=== PATIENT | female | born 1995 | race Caucasian/White ===

== ENCOUNTER 2017-10-18 19:34 | Emergency (ER) | payer SELFPAY ==
[2017-10-18] MEDS ORDERED: Bacitracin Oint 1 GM U/D Packet TOP ONE (19:51)
[2017-10-18] MEDS ORDERED: Diphtheria,Pertussis(Acell),Tetanus Vaccine 0.5 ML Syringe IM ONE (19:51)
--- NOTE | 2017-10-18 19:52 | EDM.PDOC ---
ED HPI GENERAL MEDICAL PROBLEM - General Chief Complaint: Lower Extremity Injury/Pain Stated Complaint: RIGHT KNEE PAIN Time Seen by Provider: 10/18/17 19:48 - History of Present Illness INITIAL COMMENTS - FREE TEXT/NARRATIVE: HISTORY AND PHYSICAL: History of present illness: Patient is a 22-year-old female presents status post fall and she was tripped by her dog sustaining an injury to her left hand and right knee her right knee sustained an abrasion and contusion she feels she jammed her first digit of her left hand with a fall there is no other trauma concern she denies any head or neck pain or trauma other problems Review of systems: As per history of present illness and below otherwise all systems reviewed and negative. Past medical history: As per history of present illness and as reviewed below otherwise noncontributory. Surgical history: As per history of present illness and as reviewed below otherwise noncontributory. Social history: No reported history of drug or alcohol abuse. Family history: As per history of present illness and as reviewed below otherwise noncontributory. Physical exam: HEENT: Atraumatic, normocephalic, pupils reactive, negative for conjunctival pallor or scleral icterus, mucous membranes moist, throat clear, neck supple, nontender, trachea midline. Lungs: Clear to auscultation, breath sounds equal bilaterally, chest nontender. Heart: S1S2, regular, negative for clicks, rubs, or JVD. Abdomen: Soft, nondistended, nontender. Negative for masses or hepatosplenomegaly. Negative for costovertebral tenderness. Pelvis: Stable nontender. Genitourinary: Deferred. Rectal: Deferred. Extremities: Patient's left thumb has no gross deformity; tenderness at the base was no crepitation CMS neurovascular is unremarkable right knee has a joint is grossly stable minor abrasion noted over the patella there is no crepitation or point tenderness no effusion. Neuro: Awake, alert, oriented. Cranial nerves II through XII unremarkable. Cerebellum unremarkable. Motor and sensory unremarkable throughout. Exam nonfocal. Diagnostics: X-ray right knee/left hand Therapeutics: Abrasion was cleansed and dressed with bacitracin Impression: 1 right knee injury #2 left hand injury #3 observation status post fall Definitive disposition and diagnosis as appropriate pending reevaluation and review of above. - Related Data Allergies Allergy/AdvReac Type Severity Reaction Status Date / Time No Known Allergies Allergy Verified 10/18/17 19:50 Home Meds: Home Meds . [No Known Home Meds] 10/18/17 [History] Review of Systems - Review of Systems Review Of Systems: ROS reveals no pertinent complaints other than HPI. ED EXAM, GENERAL - Physical Exam Exam: See Below (Dictation) Departure - Departure Time of Disposition: 19:51 Disposition: Home, Self-Care 01 Condition: Good Clinical Impression: Knee injury, Hand injury, Abrasion - Discharge Information *PRESCRIPTION DRUG MONITORING PROGRAM REVIEWED*: Not Applicable *COPY OF PRESCRIPTION DRUG MONITORING REPORT IN PATIENT MARK: Not Applicable Referrals: PCP,None [Primary Care Provider] - Additional Instructions: The following information is given to patients seen in the emergency department who are being discharged to home. This information is to outline your options for follow-up care. We provide all patients seen in our emergency department with a follow-up referral. The need for follow-up, as well as the timing and circumstances, are variable depending upon the specifics of your emergency department visit. If you don't have a primary care physician on staff, we will provide you with a referral. We always advise you to contact your personal physician following an emergency department visit to inform them of the circumstance of the visit and for follow-up with them and/or the need for any referrals to a consulting specialist. The emergency department will also refer you to a specialist when appropriate. This referral assures that you have the opportunity for followup care with a specialist. All of these measure are taken in an effort to provide you with optimal care, which includes your followup. Under all circumstances we always encourage you to contact your private physician who remains a resource for coordinating your care. When calling for followup care, please make the office aware that this follow-up is from your recent emergency room visit. If for any reason you are refused follow-up, please contact the [facility] emergency department at and asked to speak to the emergency department charge nurse. [] Motrin/Tylenol as directed follow primary medical doctor as needed as discussed and return as needed as discussed
[2017-10-18] MEDS ORDERED: Ibuprofen 400 MG Tab PO ONE (20:18)
--- NOTE | 2017-10-20 12:13 | CR ---
EXAM DATE: 10/18/17 PATIENT'S AGE: 22 Patient: MAYRA WILLIS Facility: [place], [place] Site . Site : 1995 Study: XRay Knee Right [id number]/25/2018 8:28:26 PM Ordering Physician: Rula Ghotra Final Report: Indication: Pain Technique: Three views of the right knee were obtained. Comparison: None Findings: No acute fracture or subluxation is identified. The joint spaces are well maintained. A significant joint effusion is not appreciated. Impression: No acute fracture. Dictated by Damaris Juarez MD @ Oct 18 2017 8:34PM (Electronic Signature) Report Signed by Proxy. EVELINA
--- NOTE | 2017-10-20 12:13 | CR ---
EXAM DATE: 10/18/17 PATIENT'S AGE: 22 Patient: MAYRA WILLIS Facility: [place], [place] Site . Site : 1995 Study: XRay Extremity Left hand [id number]/25/2018 8:28:05 PM Ordering Physician: Rula Ghotra Final Report: Indication: Pain/dog bite Technique: Three views of the left hand were obtained. Comparison: None Findings: No acute fracture or subluxation is identified. The joint spaces are well maintained. No radiopaque foreign body is identified. Impression: No acute fracture. No radiopaque foreign body. Dictated by Damaris Juarez MD @ Oct 18 2017 8:28PM (Electronic Signature) Report Signed by Proxy. EVELINA
== END 2017-10-18 20:49 | disposition home or self-care (01) ==
LOC: MW.ED 19:34
DX: S80.211A Abrasion, right knee, initial encounter (principal); W01.0XXA Fall on same level from slipping, tripping and stumbling without subsequent striking against object, initial encounter
CPT/HCPCS: 73130; 73562; 99283; A9270

== ENCOUNTER 2018-03-11 19:15 | Emergency (ER) | payer SELFPAY ==
[2018-03-11] MEDS ORDERED: Octyl 2-Cyanoacrylate 1 Tube TOP ONE (19:37)
[2018-03-11] MEDS ORDERED: Diphtheria,Pertussis(Acell),Tetanus Vaccine 0.5 ML Syringe IM ONE (19:37)
--- NOTE | 2018-03-11 19:43 | EDM.PDOC ---
ED HPI GENERAL MEDICAL PROBLEM - General Chief Complaint: Laceration Stated Complaint: CUT TO RT THUMB Time Seen by Provider: 03/11/18 19:23 Source of Information: Reports: Patient History Limitations: Reports: No Limitations - History of Present Illness INITIAL COMMENTS - FREE TEXT/NARRATIVE: HISTORY AND PHYSICAL: History of present illness: Patient is a 22-year-old female who presents to the emergency room with a 1 cm laceration to the pad of her right thumb. She states she was opening a can when the lid that can had cut the pad of her right thumb. Bleeding is well- controlled. She is unsure of her last tetanus update. Review of systems: As per history of present illness and below otherwise all systems reviewed and negative. Past medical history: As per history of present illness and as reviewed below otherwise noncontributory. Surgical history: As per history of present illness and as reviewed below otherwise noncontributory. Social history: See social history for further information Family history: As per history of present illness and as reviewed below otherwise noncontributory. Physical exam: General: Well-developed and well-nourished 22-year-old female. Alert and oriented. Nontoxic appearing and in no acute distress. HEENT: Atraumatic, normocephalic, pupils equal and reactive bilaterally, negative for conjunctival pallor or scleral icterus, mucous membranes moist, TMs normal bilaterally, throat clear, neck supple, nontender, trachea midline. No drooling or trismus noted. No meningeal signs. No hot potato voice noted. Lungs: Clear to auscultation, breath sounds equal bilaterally, chest nontender. Heart: S1S2, regular rate and rhythm without overt murmur Abdomen: Soft, nondistended, nontender. Negative for masses or hepatosplenomegaly. Negative for costovertebral tenderness. Pelvis: Stable nontender. Genitourinary: Deferred. Rectal: Deferred. Skin: 1 cm laceration across the pad of the right thumb. This does not extend into the nailbed. Intact, warm, dry. No lesions or rashes noted. Extremities: Atraumatic, negative for cords or calf pain. Neurovascular unremarkable. Neuro: Awake, alert, oriented. Cranial nerves II through XII unremarkable. Cerebellum unremarkable. Motor and sensory unremarkable throughout. Exam nonfocal. Notes: The patient requests that Dermabond be used and declines sutures at this time. The laceration is not deep enough that it is requiring sutures. I will cleanse the area thoroughly with chlorhexidine and update her tetanus. Wound will be closed with Steri-Strips and Dermabond. Supportive care measures were reviewed and discussed. She voices understanding and is agreeable to plan of care. Denies any further questions or concerns at this time. Diagnostics: None Therapeutics: DTaP, Steri-Strip, Dermabond, wound care Prescription: None Impression: Laceration, right thumb Plan: 1. Keep the area clean and dry. Continue to monitor for signs of infection. Please do not pull or rebound the Steri-Strips glue that has been placed. This will fall off on its own. If needed you may trim the edges as it starts to left. 2. Avoid soaking this in water, but you may wash your hand as needed. 3. Please follow-up with her primary care provider in the next 1-2 days. Return to the ED as needed and as discussed. Definitive disposition and diagnosis as appropriate pending reevaluation and review of above. - Related Data Allergies Allergy/AdvReac Type Severity Reaction Status Date / Time amoxicillin [From Augmentin] Allergy Cannot Verified 03/11/18 19:32 Remember aspirin Allergy Cannot Verified 03/11/18 19:32 Remember clavulanic acid Allergy Cannot Verified 03/11/18 19:32 [From Augmentin] Remember Home Meds: Home Meds . 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 ED EXAM, SKIN/RASH Exam: See Below (See dictation) ED SKIN PROCEDURES - Laceration/Wound Repair Right thumb Lac/Wound length In cm: 1 Appearance: Superficial, Linear Distal NVT: Neuro & Vascular Intact, No Tendon Injury Skin Prep: Chlorhexidine (Hibiciens), Saline Saline Irrigation (cc's): 25 Exploration/Debridement/Repair: Wound Explored, No Foreign Material Found Closed with: Dermabond, Steri-Strips Sterile Dressing Applied: None Tetanus Status Addressed: Yes Complications: No Course - Vital Signs Last Recorded V/S: Last Vital Signs Temp 97.7 F 03/11/18 19:30 Pulse 91 03/11/18 19:30 Resp 16 03/11/18 19:30 BP 146/90 H 03/11/18 19:30 Pulse Ox 94 L 03/11/18 19:30 - Orders/Labs/Meds Orders: Active Orders 24 hr Category Date Time Status Communication Order [RC] STAT Care 03/11/18 19:37 Ordered Vaccines to be Administered [RC] PER UNIT ROUTINE Care 03/11/18 19:37 Ordered Diphth,Pertuss(Acell),Tet Vac [Adacel] Med 03/11/18 19:37 Once 0.5 ml IM .ONCE ONE Medication Orders Diphtheria/Tetanus/Acell Pertussis (Adacel) 0.5 ml IM .ONCE ONE Stop: 03/11/18 19:38 Meds: Medications Generic Name Dose Route Start Last Admin Trade Name Freq PRN Reason Stop Dose Admin Diphtheria/Tetanus/Acell Pertussis 0.5 ml 03/11/18 19:37 Adacel IM 03/11/18 19:38 .ONCE ONE Discontinued Medications Generic Name Dose Route Start Last Admin Trade Name Freq PRN Reason Stop Dose Admin Octyl Cyanoacrylate 1 applic 03/11/18 19:37 Dermabond Advance TOP 03/11/18 19:38 ONETIME ONE Departure - Departure Time of Disposition: 19:42 Disposition: Home, Self-Care 01 Clinical Impression: Laceration - Discharge Information Instructions: Laceration Care, Adult, [id number] Referrals: PCP,None [Primary Care Provider] - Additional Instructions: The following information is given to patients seen in the emergency department who are being discharged to home. This information is to outline your options for follow-up care. We provide all patients seen in our emergency department with a follow-up referral. The need for follow-up, as well as the timing and circumstances, are variable depending upon the specifics of your emergency department visit. If you don't have a primary care physician on staff, we will provide you with a referral. We always advise you to contact your personal physician following an emergency department visit to inform them of the circumstance of the visit and for follow-up with them and/or the need for any referrals to a consulting specialist. The emergency department will also refer you to a specialist when appropriate. This referral assures that you have the opportunity for follow-up care with a specialist. All of these measure are taken in an effort to provide you with optimal care, which includes your follow-up. Under all circumstances we always encourage you to contact your private physician who remains a resource for coordinating your care. When calling for follow-up care, please make the office aware that this follow-up is from your recent emergency room visit. If for any reason you are refused follow-up, please contact the [facility] Emergency Department at and asked to speak to the emergency department charge nurse. [facility] [address] [place] [id number] [facility] [address] [place] [id number] 1. Keep the area clean and dry. Continue to monitor for signs of infection. Please do not pull or rebound the Steri-Strips glue that has been placed. This will fall off on its own. If needed you may trim the edges as it starts to left. 2. Avoid soaking this in water, but you may wash your hand as needed. 3. Please follow-up with her primary care provider in the next 1-2 days. Return to the ED as needed and as discussed. - My Orders Last 24 Hours: My Active Orders 03/11/18 19:37 Communication Order [RC] STAT Vaccines to be Administered [RC] PER UNIT ROUTINE Diphth,Pertuss(Acell),Tet Vac [Adacel] 0.5 ml IM .ONCE ONE - Assessment/Plan Last 24 Hours: My Active Orders 03/11/18 19:37 Communication Order [RC] STAT Vaccines to be Administered [RC] PER UNIT ROUTINE Diphth,Pertuss(Acell),Tet Vac [Adacel] 0.5 ml IM .ONCE ONE
[2018-03-11] MEDS ORDERED: Acetaminophen 325 MG Tab PO ONE (20:13)
== END 2018-03-11 20:17 | disposition home or self-care (01) ==
LOC: MW.ED 19:15
DX: S61.011A Laceration without foreign body of right thumb without damage to nail, initial encounter (principal); F17.210 Nicotine dependence, cigarettes, uncomplicated; Z88.8 Allergy status to other drugs, medicaments and biological substances; Z88.1 Allergy status to other antibiotic agents; Z23 Encounter for immunization; W26.8XXA Contact with other sharp object(s), not elsewhere classified, initial encounter
CPT/HCPCS: 12001; 90471; 90715; 99283; A9270

== ENCOUNTER 2021-10-10 13:58 | Emergency (ER) | payer SELFPAY | END 2021-10-10 19:28 | disposition home or self-care (01) | LOC: MW.ED 13:58 | DX: H66.91 Otitis media, unspecified, right ear (principal); Z88.0 Allergy status to penicillin; Z88.8 Allergy status to other drugs, medicaments and biological substances | CPT/HCPCS: 99282; 99283 ==

== ENCOUNTER 2021-10-11 19:59 | Emergency (ER) | payer SELFPAY ==
[2021-10-11] MEDS ORDERED: oxyCODONE 5 MG Tab PO ONE (22:25)
== END 2021-10-11 22:37 | disposition home or self-care (01) ==
LOC: MW.ED 19:59
DX: M26.601 Right temporomandibular joint disorder, unspecified (principal); Z88.8 Allergy status to other drugs, medicaments and biological substances; Z88.1 Allergy status to other antibiotic agents
CPT/HCPCS: 99283; A9270

== ENCOUNTER 2023-11-18 08:30 | Emergency (ER) | payer SELFPAY ==
[2023-11-18] MEDS: Lidocaine 2% Viscous Solution 15 ML UD PO ONE (09:24)
[2023-11-18] MEDS: Benzocaine 20% Topical Spray UD MUCMEM ONE (09:24)
== END 2023-11-18 09:56 | disposition home or self-care (01) ==
LOC: MW.ED 08:30
DX: K02.9 Dental caries, unspecified (principal); F17.210 Nicotine dependence, cigarettes, uncomplicated; Z88.8 Allergy status to other drugs, medicaments and biological substances; Z75.8 Other problems related to medical facilities and other health care
CPT/HCPCS: 99282; A9270; 99283